=== PATIENT | female | born 1985 ===

== ENCOUNTER 2021-03-31 08:59 | Emergency (ER) | payer SELFPAY ==
--- NOTE | 2021-03-31 11:09 | Emergency Department Report ---
ED Headache HPI - General Chief Complaint: Headache Stated Complaint: SEVERE HEADACHE Time Seen by Provider: 03/31/21 10:59 Source: patient, family Exam Limitations: language barrier - History of Present Illness Initial Comments: Romanian interpretation by patient's daughter with the patient's permission Patient is a 35-year-old female who presents emergency room complaints of an exacerbation of her chronic headache that began a couple days ago. The patient had a head injury in 2009 but did not require any brain surgery and she states that she suffered from headaches for multiple years after that. She states that they stopped for a while but then returned 4 years ago. She states that she usually takes Tylenol for her headache which improved her symptoms but this time it is not helping. She is also been having nausea, vomiting, diarrhea for 4 days. Patient's child was sick at home with cold-like symptoms. She has only received 1 dose of the COVID-19 vaccine. She denies any vision changes, fever, neck stiffness, numbness, weakness, speech disturbance, gait disturbance. No other past medical history. No allergies to medications. Allergies/Adverse Reactions: Allergies No Known Allergies Allergy (Unverified 03/31/21 12:00) Home Medications: Ambulatory Orders Butalb/Acetaminophen/Caffeine [Fioricet 50-300-40 mg CAP] 1 cap PO Q8HR PRN #12 cap 03/31/21 Ondansetron [Zofran Odt] 4 mg PO Q8HR PRN #10 tab.rapdis 03/31/21 ED Review of Systems ROS: Stated complaint: SEVERE HEADACHE Other details as noted in HPI Comment: All other systems reviewed and negative ED Past Medical Hx - Past Medical History Previous Medical History?: No - Surgical History Past Surgical History?: No - Social History Smoking Status: Never Smoker Substance Use Type: None - Medications Home Medications: Home Medications Medication Instructions Recorded Confirmed Last Taken Type Butalb/Acetaminophen/Caffeine 1 cap PO Q8HR PRN #12 cap 03/31/21 Unknown Rx [Fioricet 50-300-40 mg CAP] Ondansetron [Zofran Odt] 4 mg PO Q8HR PRN #10 tab.rapdis 03/31/21 Unknown Rx ED Physical Exam - General Limitations: No Limitations General appearance: alert, in no apparent distress - Head Head exam: Present: atraumatic, normocephalic - Eye Eye exam: Present: normal appearance - ENT ENT exam: Present: mucous membranes moist - Neck Neck exam: Present: full ROM. Absent: meningismus - Respiratory Respiratory exam: Present: normal lung sounds bilaterally. Absent: respiratory distress, wheezes, rales, rhonchi, stridor, chest wall tenderness, accessory muscle use, decreased breath sounds, prolonged expiratory - Cardiovascular Cardiovascular Exam: Present: regular rate, normal rhythm, normal heart sounds. Absent: systolic murmur, diastolic murmur, rubs, gallop - GI/Abdominal GI/Abdominal exam: Present: soft, normal bowel sounds. Absent: distended, tenderness, guarding, rebound, rigid - Neurological Exam Neurological exam: Present: alert, oriented X3, CN II-XII intact, normal gait. Absent: motor sensory deficit - Psychiatric Psychiatric exam: Present: normal affect, normal mood - Skin Skin exam: Present: warm, dry, intact ED Course Vital Signs 03/31/21 03/31/21 03/31/21 10:35 13:01 13:02 Temperature 98.1 F Pulse Rate 102 H Respiratory 20 15 15 Rate Blood Pressure 116/82 Blood Pressure [Right] O2 Sat by Pulse 97 Oximetry 03/31/21 13:49 Temperature Pulse Rate 85 Respiratory 16 Rate Blood Pressure Blood Pressure 116/71 [Right] O2 Sat by Pulse 99 Oximetry ED Medical Decision Making - Lab Data Result diagrams: 03/31/21 11:14 03/31/21 11:14 Lab Results 03/31/21 03/31/21 03/31/21 Range/Units 11:14 11:14 11:14 WBC 11.3 H (4.5-11.0) K/mm3 RBC 5.08 H (3.65-5.03) M/mm3 Hgb 14.3 (10.1-14.3) gm/dl Hct 43.3 H (30.3-42.9) % MCV 85 (79-97) fl MCH 28 (28-32) pg MCHC 33 (30-34) % RDW 13.3 (13.2-15.2) % Plt Count 208 (140-440) K/mm3 Lymph % (Auto) 8.8 L (13.4-35.0) % [place] % (Auto) 7.7 H (0.0-7.3) % Eos % (Auto) 1.6 (0.0-4.3) % Baso % (Auto) 0.2 (0.0-1.8) % Lymph # (Auto) 1.0 L (1.2-5.4) K/mm3 [place] # (Auto) 0.9 H (0.0-0.8) K/mm3 Eos # (Auto) 0.2 (0.0-0.4) K/mm3 Baso # (Auto) 0.0 (0.0-0.1) K/mm3 Seg Neutrophils % 81.7 H (40.0-70.0) % Seg Neutrophils # 9.3 H (1.8-7.7) K/mm3 Sodium 140 (137-145) mmol/L Potassium 4.3 (3.6-5.0) mmol/L Chloride 107.6 H (98-107) mmol/L Carbon Dioxide 20 L (22-30) mmol/L Anion Gap 17 mmol/L BUN 13 (7-17) mg/dL Creatinine 0.4 L (0.6-1.2) mg/dL Estimated GFR > 60 ml/min BUN/Creatinine Ratio 33 % Glucose 90 (65-100) mg/dL Calcium 8.7 (8.4-10.2) mg/dL Total Bilirubin 0.40 (0.1-1.2) mg/dL AST 22 (5-40) units/L ALT 40 (7-56) units/L Alkaline Phosphatase 99 (35-129) units/L Total Protein 8.3 H (6.3-8.2) g/dL Albumin 4.4 (3.9-5) g/dL Albumin/Globulin Ratio 1.1 % Lipase (13-60) units/L HCG, Qual Negative (Negative) 03/31/21 Range/Units 11:17 WBC (4.5-11.0) K/mm3 RBC (3.65-5.03) M/mm3 Hgb (10.1-14.3) gm/dl Hct (30.3-42.9) % MCV (79-97) fl MCH (28-32) pg MCHC (30-34) % RDW (13.2-15.2) % Plt Count (140-440) K/mm3 Lymph % (Auto) (13.4-35.0) % [place] % (Auto) (0.0-7.3) % Eos % (Auto) (0.0-4.3) % Baso % (Auto) (0.0-1.8) % Lymph # (Auto) (1.2-5.4) K/mm3 [place] # (Auto) (0.0-0.8) K/mm3 Eos # (Auto) (0.0-0.4) K/mm3 Baso # (Auto) (0.0-0.1) K/mm3 Seg Neutrophils % (40.0-70.0) % Seg Neutrophils # (1.8-7.7) K/mm3 Sodium (137-145) mmol/L Potassium (3.6-5.0) mmol/L Chloride (98-107) mmol/L Carbon Dioxide (22-30) mmol/L Anion Gap mmol/L BUN (7-17) mg/dL Creatinine (0.6-1.2) mg/dL Estimated GFR ml/min BUN/Creatinine Ratio % Glucose (65-100) mg/dL Calcium (8.4-10.2) mg/dL Total Bilirubin (0.1-1.2) mg/dL AST (5-40) units/L ALT (7-56) units/L Alkaline Phosphatase (35-129) units/L Total Protein (6.3-8.2) g/dL Albumin (3.9-5) g/dL Albumin/Globulin Ratio % Lipase 28 (13-60) units/L HCG, Qual (Negative) Vital Signs 03/31/21 03/31/21 03/31/21 10:35 13:01 13:02 Temperature 98.1 F Pulse Rate 102 H Respiratory 20 15 15 Rate Blood Pressure 116/82 Blood Pressure [Right] O2 Sat by Pulse 97 Oximetry 03/31/21 13:49 Temperature Pulse Rate 85 Respiratory 16 Rate Blood Pressure Blood Pressure 116/71 [Right] O2 Sat by Pulse 99 Oximetry - Medical Decision Making Romanian interpretation by patient's daughter with the patient's permission Patient is a 35-year-old female who presents emergency room complaints of an exacerbation of her chronic headache that began a couple days ago. The patient had a head injury in 2009 but did not require any brain surgery and she states that she suffered from headaches for multiple years after that. She states that they stopped for a while but then returned 4 years ago. She states that she usually takes Tylenol for her headache which improved her symptoms but this time it is not helping. She is also been having nausea, vomiting, diarrhea for 4 days. Patient's child was sick at home with cold-like symptoms. She has only received 1 dose of the COVID-19 vaccine. She denies any vision changes, fever, neck stiffness, numbness, weakness, speech disturbance, gait disturbance. No other past medical history. No allergies to medications. Initial vitals with mild tachycardia which improved to normal upon repeat. Patient has had no acute trauma. She has no focal neuro deficits. She has no meningeal signs. Labs are stable. Patient given medications while in the emergency room and on reexamination she is resting comfortably, headache has significantly improved, she has had no episodes of vomiting while in the ER, she is able to tolerate p. o. intake. Discussed all results with patient. Patient given prescription for medication. Advised patient Please take medication as prescribed as needed. Increase your water intake. Follow-up with your primary care doctor for reexamination. Follow-up with a neurologist for your headaches. Return to emergency room immediately for any new or worsening symptoms. Recommend for you to get outpatient COVID-19 testing and if positive will need to self quarantine for 10 days from onset of symptoms. Critical care attestation.: If time is entered above; I have spent that time in minutes in the direct care of this critically ill patient, excluding procedure time. ED Disposition Clinical Impression: Nausea vomiting and diarrhea Headache Qualifiers: Headache type: unspecified Headache chronicity pattern: acute headache Intractability: not intractable Qualified Code(s): R51.9 - Headache, unspecified Disposition: 01 HOME / SELF CARE / HOMELESS Is pt being admited?: No Does the pt Need Aspirin: No Condition: Stable Instructions: Migraine Headache, [id number], Viral Illness, Adult Additional Instructions: Please take medication as prescribed as needed. Increase your water intake. Follow-up with your primary care doctor for reexamination. Follow-up with a neurologist for your headaches. Return to emergency room immediately for any n ew or worsening symptoms. Recommend for you to get outpatient COVID-19 testing and if positive will need to self quarantine for 10 days from onset of symptoms. [place] la medicacin prescrita segn sea necesario. Incrementa tu ingesta de agua. Akhil un seguimiento con wood mdico de atencin primaria para un nuevo examen. Akhil un seguimiento con un neurlogo para denisse scott de miranda. Regrese a la tucker de emergencias de inmediato ante cualquier sntoma nuevo o que empeore. Se recomienda que se realice katherine prueba de COVID-19 para pacientes ambulatorios y, si es positivo, deber ponerse en cuarentena brandie 10 bryant desde la aparicin de los sntomas. Prescriptions: Butalb/Acetaminophen/Caffeine [Fioricet 50-300-40 mg CAP] 1 cap PO Q8HR PRN #12 cap PRN Reason: headache Ondansetron [Zofran Odt] 4 mg PO Q8HR PRN #10 tab.rapdis PRN Reason: nausea/vomiting Referrals: PRIMARY CARE, [Primary Care Provider] - 3-5 Days ERMIAS ADAMES MD [Staff Physician] - 3-5 Days BRISEIDA HWANG MD [Staff Physician] - 3-5 Days Time of Disposition: 13:36 Print Language: GUINEAN
[2021-03-31 12:01] LABS: Basophils % (Auto) 0.2 % (0.0-1.8); Eosinophils # (Auto) 0.2 K/mm3 (0.0-0.4); Eosinophils % (Auto) 1.6 % (0.0-4.3); Hematocrit 43.3 % (30.3-42.9); Hemoglobin 14.3 gm/dl (10.1-14.3); Lymphocytes % (Auto) 8.8 % (13.4-35.0); Mean Corpuscular HGB Conc 33 % (30-34); Mean Corpuscular Volume 85 fl (79-97); Monocytes # (Auto) 0.9 K/mm3 (0.0-0.8); Monocytes % (Auto) 7.7 % (0.0-7.3); Platelet Count 208 K/mm3 (140-440); Red Blood Count 5.08 M/mm3 (3.65-5.03); Red Cell Distribution Width 13.3 % (13.2-15.2)
[2021-03-31] MEDS ORDERED: SODIUM CHLORIDE 0.9% 1000 ML 1,000 ML IV ONE (12:15)
[2021-03-31 12:16] LABS: Alanine Aminotransferase 40 units/L (7-56); Albumin 4.4 g/dL (3.9-5); Blood Urea Nitrogen 13 mg/dL (7-17); Calcium 8.7 mg/dL (8.4-10.2); Hemolysis Index 7
[2021-03-31 12:35] LABS: BUN/Creatinine Ratio 33
[2021-03-31] MEDS ORDERED: METOCLOPRAMIDE 10 MG/2 ML INJ IV ONE (13:00)
[2021-03-31] MEDS ORDERED: diphenhydrAMINE 50 MG/ML VIAL IV ONE (13:00)
[2021-03-31] MEDS: KETOROLAC 30 MG/1 ML INJ IV ONE ×2 (13:01→13:02)
[2021-03-31 13:53] VITALS: BP 116/71
== END 2021-03-31 13:52 | disposition home or self-care (01) ==
LOC: ED 08:59
DX: R51.9 Headache, unspecified (principal); R11.2 Nausea with vomiting, unspecified; R19.7 Diarrhea, unspecified
CPT/HCPCS: 36415; 80053; 83690; 84703; 85025; 96361; 96374; 96375; 99283; J1200; J1885; J2765; J7030